=== PATIENT | female | born 1965 | race Caucasian/White ===

== ENCOUNTER 2016-11-08 18:24 | Emergency (ER) | payer OTHER ==
--- NOTE | 2016-11-12 19:20 | ER ---
ADMIT: 11/08/2016 RM/LOC: ER [facility] MR#: [id number] [address] [id number] [address] [place], [place] [id number] Emergency Room Report SEX: F AGE: 51 : 1965 DATE: 11/08/2016 HISTORY OF PRESENT ILLNESS: The patient is a 51-year-old female, with past medical history of hypertension, came to the ER with chief complaint of lower mid-anterior chest pain and also epigastric pain, which started gradually and started an hour ago, waxes and wanes, and the patient denies similar pain in the past. Pain had started while the patient was sitting. The patient denies any shortness of breath and pain is not radiated to anywhere else. The patient denies any diaphoresis or any numbness in the extremities. PHYSICAL EXAMINATION: GENERAL: The patient was in no obvious pain when I saw the patient, in no obvious distress. VITAL SIGNS: Stable. The patient was afebrile. The patient states she still had some pain. HEAD and NECK: Normal. CHEST: Clear bilaterally. HEART: Normal heart sounds without any murmurs or gallops. ABDOMEN: Soft without any tenderness or rebound. EXTREMITIES: There is no swelling or tenderness in extremities. EMERGENCY ROOM COURSE: EKG did not show any ST or T changes or arrhythmia or Q-waves. Cardiac enzymes are negative. The patient received GI cocktail and aspirin and pain substantially resolved. Lipase of 223 with sodium of 144, potassium of 3.4, and glucose of 135. AST was elevated to 200, the ALT of 111, and the patient was advised to follow up with the primary doctor. D- dimer was mildly elevated to 0.75, but considering the resolution of the symptoms with GI cocktail and the symptoms and signs, I do not want extra and probably unnecessary imaging and other modalities. The patient is stable, in no pain or distress. Abdominal exam did not show any new symptoms and the patient can be discharged home with; DIAGNOSES: 1. Chest pain, resolved. 2. Abdominal pain, resolved. PLAN: The patient was advised to follow up with the primary doctor as needed. Simon Hicks MD/ aruna JOB #: [id number] CC: Woody Day MD, Attending Physician Other Physician, Family Physician
== END 2016-11-08 21:10 | disposition home or self-care (01) ==
LOC: ER 18:24
DX: R07.89 Other chest pain (principal); R10.13 Epigastric pain; I10 Essential (primary) hypertension; Z90.49 Acquired absence of other specified parts of digestive tract